=== PATIENT | female | born 1985 | race African-American/Black ===

== ENCOUNTER 2020-07-27 13:06 | Emergency (ER) | payer OTHER ==
--- OUTSIDE RECORDS SUMMARY | 2020-07-27 13:09 | XMS REPORT | Continuity of Care Document ---
:1985 Author Organization [facility] t Address [address] [place] [address] [address] [place] [address] Care Team Providers Name Role Phone Unavailable Unavailable Unavailable Problems This patient has no known problems. Allergies, Adverse Reactions, Alerts This patient has no known allergies or adverse reactions. Medications This patient has no known medications. Procedures This patient has no known procedures. Results This patient has no known results.
[2020-07-27 13:33] LABS: Urine Blood Trace-intact (Negative); Urine Glucose Negative (Negative); Urine Protein 1+ (Negative); Urine pH >=9.0 (5.0-7.0)
[2020-07-27 13:55] LABS: Urine Bacteria 20-50 /HPF (<20)
--- NOTE | 2020-07-27 14:09 | EDPHYS ---
Physician Documentation [facility] Name: Alexandira Sewell Age: 35 yrs Sex: Female : 1985 Arrival Date: 07/27/2020 Time: 13:13 Bed 5 Private MD: ED Physician Tony Koenig HPI: 07/27 13:40 This 35 yrs old Black Female presents to ER via Ambulatory with complaints of Urinary cp Frequency. 13:40 The patient presents with urinary symptoms, dysuria, frequency. cp 13:40 Onset: The symptoms/episode began/occurred today. Associated signs and symptoms: cp Pertinent negatives: fever, abdominal pain, back pain. Severity of symptoms: in the emergency department the symptoms are unchanged, despite home interventions. 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 - Social history:: Smoking status: Patient denies any tobacco usage or history of. Patient/guardian denies using alcohol, street drugs. ROS: 13:45 Eyes: Negative for injury, pain, redness, and discharge. cp 13:45 Constitutional: Negative for body aches, chills, fever, poor PO intake. 13:45 Cardiovascular: Negative for chest pain. 13:45 Respiratory: Negative for cough, shortness of breath, wheezing. 13:45 Abdomen/GI: Negative for abdominal pain, nausea, vomiting, and diarrhea, constipation. 13:45 : Positive for urinary symptoms, urinary frequency, burning with urination, Negative for vaginal bleeding, vaginal discharge. 13:45 Neuro: Negative for altered mental status, headache, weakness. 13:45 All other systems are negative. Exam: 13:50 Constitutional: The patient appears in no acute distress, alert, awake, comfortable, cp non-toxic, well developed, well nourished. 13:50 Head/Face: Normocephalic, atraumatic. cp 13:50 Cardiovascular: Rate: normal. 13:50 Respiratory: the patient does not display signs of respiratory distress, Respirations: normal, no use of accessory muscles, no retractions, labored breathing, is not present. 13:50 Abdomen/GI: Exam negative for discomfort, distension, guarding, Inspection: abdomen appears normal. Vital Signs: 13:36 BP 114 / 88; Pulse 98; Resp 18; Temp 98.4; Pulse Ox 100% on R/A; Weight 90.72 kg; ld1 Height 5 ft. 3 in. (160.02 cm); Pain 0/10; 13:36 Body Mass Index 35.43 (90.72 kg, 160.02 cm) ld1 MDM: 13:47 Patient medically screened. eliza 14:07 Differential diagnosis: pelvic inflammatory disease, urinary tract infection, vaginosis. 14:07 Data reviewed: vital signs, nurses notes, lab test result(s), urinalysis. Counseling: I cp had a detailed discussion with the patient and/or guardian regarding: the historical points, exam findings, and any diagnostic results supporting the discharge/admit diagnosis, lab results, to return to the emergency department if symptoms worsen or persist or if there are any questions or concerns that arise at home. 07/27 13:31 Order name: Urine Microscopic Only; Complete Time: 14:05 07/27 14:05 Interpretation: Normal except: UWBC 20-50; URBC 5-10; UBACT 20-50; SQEPI 10-20. 07/27 13:33 Order name: Urine Dipstick-Ancillary [facility] 07/27 13:31 Order name: Urine Dipstick-Ancillary (obtain specimen); Complete Time: 13:41 07/27 13:31 Order name: Urine Test (obtain specimen); Complete Time: 13:41 07/27 13:33 Order name: Urine --Ancillary (enter results) eb 07/27 13:56 Order name: Urine Culture EDMA Administered Medications: No medications were administered Disposition: 07/28 09:58 Co-signature as Attending Physician, Tony Koenig MD I agree with the assessment and [facility] plan of care. Disposition: 07/27/20 14:08 Discharged to Home. Impression: Urinary tract infection, site not specified. - Condition is Stable. - Discharge Instructions: Urinary Tract Infection, Adult. - Prescriptions for Pyridium 200 mg Oral Tablet - take 1 tablet by ORAL route every 8 hours for 3 days; 6 tablet. Macrobid 100 mg Oral Capsule - take 1 capsule by ORAL route every 12 hours for 7 days; 14 capsule. - Medication Reconciliation Form, Thank You Letter, Antibiotic Education, Prescription Opioid Use form. - Follow up: Private Physician; When: 2 - 3 days; Reason: Worsening of condition. - Problem is new. - Symptoms have improved. Signatures: Dispatcher [employer] EDMA Tony Koenig MD MD cha Page, Corey, PA PA cp Nella Lutz RN RN ld1 Corrections: (The following items were deleted from the chart) 07/27 14:19 14:08 07/27/2020 14:08 Discharged to Home. Impression: Urinary tract infection, site ld1 not specified. Condition is Stable. Forms are Medication Reconciliation Form, Thank You Letter, Antibiotic Education, Prescription Opioid Use. Follow up: Private Physician; When: 2 - 3 days; Reason: Worsening of condition. Problem is new. Symptoms have improved. cp
--- NOTE | 2020-07-27 14:09 | ER ---
Nurse's Notes [facility] Name: Alexandria Sewell Age: 35 yrs Sex: Female : 1985 Arrival Date: 07/27/2020 Time: 13:13 Bed 5 Private MD: Diagnosis: Urinary tract infection, site not specified Presentation: 07/27 13:36 Chief complaint: Patient states: Pain with urination, frequent urination. Coronavirus ld1 screen: Client denies travel out of the [place] in the last 14 days. At this time, the client does not indicate any symptoms associated with coronavirus-19. Ebola Screen: No symptoms or risks identified at this time. Initial Sepsis Screen: Does the patient meet any 2 criteria? No. Patient's initial sepsis screen is negative. Does the patient have a suspected source of infection? No. Patient's initial sepsis screen is negative. Risk Assessment: Do you want to hurt yourself or someone else? Patient reports no desire to harm self or others. Onset of symptoms was July 26, 2020. 13:36 Method Of Arrival: Ambulatory ld1 13:36 Acuity: MARY GRACE 4 ld1 Triage Assessment: 13:38 General: Appears in no apparent distress. comfortable, Behavior is calm, cooperative, ld1 appropriate for age. Pain: Denies pain. EENT: No signs and/or symptoms were reported regarding the EENT system. Neuro: Level of Consciousness is awake, alert, obeys commands, Oriented to person, place, time, situation. Cardiovascular: Capillary refill < 3 seconds Patient's skin is warm and dry. Respiratory: Airway is patent Respiratory effort is even, unlabored, Respiratory pattern is regular, symmetrical. GI: Abdomen is round non-distended. : Reports burning with urination, since 2-3 days ago urinary frequency, since 2-3 days. Derm: No signs and/or symptoms reported regarding the dermatologic system. Musculoskeletal: No signs and/or symptoms reported regarding the musculoskeletal system. 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 - Social history:: Smoking status: Patient denies any tobacco usage or history of. Patient/guardian denies using alcohol, street drugs. Screenin:40 Abuse screen: Denies threats or abuse. Denies injuries from another. Nutritional ld1 screening: No deficits noted. Tuberculosis screening: No symptoms or risk factors identified. Fall Risk None identified. Assessment: 13:40 Reassessment: See triage assessment. ld1 Vital Signs: 13:36 BP 114 / 88; Pulse 98; Resp 18; Temp 98.4; Pulse Ox 100% on R/A; Weight 90.72 kg; ld1 Height 5 ft. 3 in. (160.02 cm); Pain 0/10; 13:36 Body Mass Index 35.43 (90.72 kg, 160.02 cm) ld1 ED Course: 13:13 Patient arrived in ED. bg2 13:29 Tony Ackerman PA is PHCP. phuong 13:29 Tony Koenig MD is Attending Physician. cp 13:36 Nella Lutz, LULY is Primary Nurse. ld1 13:37 Triage completed. ld1 13:38 Arm band placed on right wrist. ld1 13:40 Patient has correct armband on for positive identification. Bed in low position. Call ld1 light in reach. Side rails up X 1. Pulse ox on. NIBP on. 13:40 No provider procedures requiring assistance completed. ld1 14:19 Patient did not have IV access during this emergency room visit. ld1 Administered Medications: No medications were administered Outcome: 14:08 Discharge ordered by . cp 14:18 Discharged to home ld1 14:18 Discharged to home ambulatory. 14:18 Condition: stable 14:18 Discharge instructions given to patient, Instructed on discharge instructions, medication usage, Demonstrated understanding of instructions, follow-up care, medications. 14:19 Patient left the ED. ld1 Addendum: 08/02/2020 09:42 Addendum: Culture Results: Positive urine culture. No further action required. Bacteria a a5 sensitive to prescribed antibiotic. Signatures: Adalgisa Bacon, RN RN aa5 Luh Zimmer bg2 Tony Acekrman PA PA cp Nella Lutz RN RN ld1
[2020-07-27 14:28] VITALS: BP 114/88; TEMP 98.4; O2SAT 100
== END 2020-07-27 14:19 | disposition home or self-care (01) ==
LOC: ER 13:06
DX: N39.0 Urinary tract infection, site not specified (principal)
CPT/HCPCS: 81003; 81015; 81025; 87077; 87086; 87088; 87186; 99283